=== PATIENT | female | born 1985 | race Caucasian/White ===

== ENCOUNTER 2016-09-24 22:15 | Emergency (ER) | payer SELFPAY ==
[~2016-09-24] VITALS: Ht 167.6 cm; Wt 54.0 kg
[2016-09-25] MEDS ORDERED: IBUPROFEN 600MG TABLET PO ONE
[2016-09-25] MEDS ORDERED: BACITRACIN ZINC OINT UDPKT TOP ONE
[2016-09-25 00:15] VITALS: BP 122/72
== END 2016-09-25 00:33 | disposition home or self-care (01) ==
LOC: ER 22:16
DX: S51.811A Laceration without foreign body of right forearm, initial encounter (principal); X99.1XXA Assault by knife, initial encounter; Y93.89 Activity, other specified; Y92.89 Other specified places as the place of occurrence of the external cause; Y99.8 Other external cause status
CPT/HCPCS: 99283